=== PATIENT | female | born 1965 | race Caucasian/White ===

== ENCOUNTER 2021-03-01 09:49 | Outpatient (REF) | payer BC, SELFPAY ==
[2021-03-01 11:15] LABS: MANUAL DIFF FLAG NO
[2021-03-01 11:23] LABS: Basophils Percent Auto 0.7 % (0-2); Eosinophils Absolute Auto 0.4 X10*3/uL (0.0-0.4); Eosinophils Percent Auto 6.6 % (0-4); Hemoglobin 11.5 g/dl (12.0-16.0); Imm Gran Abs Auto 0.03 X10*3/uL (0.00-0.03); Imm Gran Pct Auto 0.5 % (0.0-0.4); Lymphocytes Absolute Auto 2.2 X10*3/uL (1.2-4.9); Lymphocytes Percent Auto 35.7 % (20-40); Mean Corpuscular HGB Conc 31.9 g/dl (31.0-35.0); Mean Corpuscular Volume 90.7 fL (80-98); Mean Platelet Volume 10.3 fL (9.4-12.3); Monocytes Absolute Auto 0.4 X10*3/uL (0.1-1.2); Monocytes Percent Auto 6.6 % (2-11); Neutrophils Percent Auto 49.9 % (45-73); Platelet Count 267 X10*3/uL (160-400); Red Blood Count 3.97 X10*6/uL (4.20-5.50); Red Cell Distribution Width 13.1 % (11.0-16.0)
[2021-03-01 11:41] LABS: Alanine Aminotransferase 22 U/L (0-31); Albumin Level 4.1 g/dL (3.5-5.0); Alkaline Phosphatase 93 U/L (39-117); Anion Gap 13 (12-20); Aspartate Amino Transferase 25 U/L (5-31); Bilirubin Total 0.4 mg/dL (0.0-1.0); Blood Urea Nitrogen 12 mg/dL (9-16); Calcium 9.1 mg/dL (8.4-10.2); Carbon Dioxide 28 mmol/L (22-29); Chloride 104 mmol/L (96-108); Estimated Glomerular Filt Rate > 60; Glucose Random 86 mg/dL (60-115); Potassium 4.8 mmol/L (3.3-5.1); Sodium 140 mmol/L (135-145); Total Protein 6.8 g/dL (6.5-8.0)
[2021-03-02 12:37] LABS: LDL Cholesterol Direct 166 mg/dL (<100)
== END 2021-03-01 09:50 | disposition home or self-care (01) ==
LOC: HO.HMGCLDS 09:49
PROVIDERS: PCP Internal Medicine; Visit Provider Internal Medicine
DX: E66.9 Obesity, unspecified (principal); F39 Unspecified mood [affective] disorder; K21.9 Gastro-esophageal reflux disease without esophagitis; G25.81 Restless legs syndrome; G47.9 Sleep disorder, unspecified; I10 Essential (primary) hypertension; Z91.09 Other allergy status, other than to drugs and biological substances
CPT/HCPCS: 36415; 80053; 83721; 85025

== ENCOUNTER 2021-05-23 02:30 | Emergency (ER) | payer BC, SELFPAY ==
[2021-05-23 02:35] VITALS: BP 110/70; BP 122/58; PULSE 70; PULSE 82; RESP 26; TEMP 36.5; O2SAT 100; O2SAT 98; BMI 51.3
--- NOTE | 2021-05-23 02:45 | ED_ITS ---
HPI - Allergic Reaction General Chief complaint: Allergic Reaction Stated complaint: Allergic reaction Time Seen by Provider: 05/23/21 02:42 History of Present Illness HPI narrative: 56-year-old female presented today with having diffuse rash that is red, extremely itchy. Sudden in onset. There is no mucosal membrane involvement. No specific cause. There is no new medication. No changes in environment. Patient is from home. No chest pain or shortness of breath. No diaphoresis. No nausea no vomiting. Related Data Home Medications Medication Instructions Recorded Confirmed albuterol sulfate 90 mcg/actuation 2 puff INHALATION Q4-6H PRN 11/29/20 03/01/21 aerosol inhaler cyclobenzaprine 5 mg tablet 5 mg PO BEDTIME 11/29/20 03/01/21 epinephrine IM PRN 11/29/20 03/01/21 fexofenadine 180 mg tablet 180 mg PO DAILY PRN 11/29/20 03/01/21 gabapentin 400 mg capsule 400 mg PO DAILY 11/29/20 03/01/21 menthol 4 % topical cream appl TOPICAL 11/29/20 03/01/21 Previous Rx's Medication Instructions Recorded fluoxetine 20 mg capsule 20 mg PO DAILY 90 Days #90 cap 12/09/20 amitriptyline 25 mg tablet 25 mg PO BEDTIME 90 Days #90 tab 02/07/21 trazodone 50 mg tablet 50 mg PO DAILY 90 Days #90 tab 02/07/21 montelukast 10 mg tablet 10 mg PO DAILY 90 Days #90 tab 02/15/21 omeprazole 20 mg capsule,delayed 20 mg PO DAILY 90 Days #90 cap 03/01/21 release amlodipine 5 mg tablet 5 mg PO DAILY 90 Days #90 tab 03/06/21 irbesartan 300 mg tablet 300 mg PO DAILY 90 Days #90 tab 04/15/21 diphenhydramine HCl [Benadryl] 25 mg PO Q8H 5 Days #15 cap 05/23/21 epinephrine [EpiPen] 0.3 mg IM ONCE PRN #1 ea 05/23/21 famotidine [Pepcid] 20 mg PO BID 5 Days #10 tab 05/23/21 prednisone 40 mg PO DAILY #10 tab 05/23/21 Allergies Allergy/AdvReac Type Severity Reaction Status Date / Time hydrochlorothiazide Allergy Severe COUGH AND Verified 03/01/21 09:19 RASH lisinopril [LISINOPRIL] Allergy Severe RASH AND Verified 03/01/21 09:19 VOMITING acetaminophen [From VICODIN] Allergy Mild RASH Unverified 03/01/21 09:19 codeine [CODEINE] Allergy Mild RASH Verified 03/01/21 09:19 oxycodone [OXYCODONE] Allergy Mild RASH Unverified 03/01/21 09:19 Penicillins [PENICILLINS] Allergy Mild RASH Verified 03/01/21 09:19 atorvastatin [Lipitor] Allergy Unknown unknown Verified 03/01/21 09:19 hydromorphone [Dilaudid] Allergy Unknown unknown Verified 03/01/21 09:19 Requip Allergy Unknown unknown Verified 03/01/21 09:19 ropinirole [From Requip] Allergy Unknown unknown Verified 03/01/21 09:19 Sulfa (Sulfonamide Allergy Unknown unknown Verified 03/01/21 09:19 Antibiotics) tetracycline Allergy Unknown unknown Verified 03/01/21 09:19 tramadol Allergy Unknown unknown Verified 03/01/21 09:19 Review of Systems Review of Systems: Positive diffuse itchy rash Yes all other systems are reviewed and are negative [facility] Past Medical History Attestation statement: The following information was validated with the patient. Surgical History History of bariatric surgery History of gastric surgery History of mammogram History of spinal fusion History of tonsillectomy Hx of cholecystectomy LAP-BAND surgery status Family History Family History Father HTN (hypertension) Mother HTN (hypertension) Brother No problems noted. Sister No problems noted. Sister No problems noted. Social History Social History Advance Directives: No Physical Exam Vital Signs: Vital Signs: Last Vital Signs Temp 97.7 F 05/23/21 02:35 Pulse 65 05/23/21 03:03 Resp 19 05/23/21 03:03 BP 140/78 H 05/23/21 03:03 Pulse Ox 100 05/23/21 03:03 Body Mass Index 51.3 Appearance: Alert. Oriented X3. No acute distress. Eyes: Pupils equal, round and reactive to light. ENT: Pharynx normal. Neck: Normal inspection. Neck supple. No lymph nodes noted. No crepitus CVS: Normal heart rate and rhythm. Pulses normal. Normal S1 and S2 Respiratory: No respiratory distress. Breath sounds normal. No Wheezing. No rales Abdomen: Soft and nontender. No rigidity. No distention. good BS x4 Skin: diffuse erythematous rash blanching. Over the arms face body legs. There is no mucosal membrane involvement. Extremities: No lower extremity edema. Neurovascular intact to all extremities. No Lacerations. No Rash Neuro: Oriented X 3. No motor deficit. No sensory deficit. Moving all extermities. No slurred speech MDM - Allergic Reaction MDM Narrative Medical decision making narrative: Fairly severe allergic reaction vital signs are good. Will give epinephrine, steroid, Pepcid. Patient already received 50 of Benadryl prior to arrival. Will monitor closely. patient monitor for 2 hours. Well-appearing no distress. Symptom mostly resolved. Will discharge patient home. In stable condition. Differential Diagnosis Differential diagnosis: Likely anaphylaxis Discharge Plan Discharge Clinical Impression: Allergic reaction, Anaphylaxis Patient Disposition: Home, Self-Care Instructions: Anaphylaxis (ED) Prescriptions: New prednisone 20 mg tablet 40 mg PO DAILY Qty: 10 RF: 0 famotidine [Pepcid] 20 mg tablet 20 mg PO BID 5 Days Qty: 10 RF: 0 diphenhydramine HCl [Benadryl] 25 mg capsule 25 mg PO Q8H 5 Days Qty: 15 RF: 0 epinephrine [EpiPen] 0.3 mg/0.3 mL auto-injector 0.3 mg IM ONCE PRN (Reason: extreme reaction) Qty: 1 RF: 0 No Action fluoxetine 20 mg capsule 20 mg PO DAILY 90 Days Qty: 90 RF: 1 amitriptyline 25 mg tablet 25 mg PO BEDTIME 90 Days Qty: 90 RF: 0 trazodone 50 mg tablet 50 mg PO DAILY 90 Days Qty: 90 RF: 0 montelukast 10 mg tablet 10 mg PO DAILY 90 Days Qty: 90 RF: 1 amlodipine 5 mg tablet 5 mg PO DAILY 90 Days Qty: 90 RF: 0 irbesartan 300 mg tablet 300 mg PO DAILY 90 Days Qty: 90 RF: 1 epinephrine IM PRNRF: 0 gabapentin 400 mg capsule 400 mg PO DAILY RF: 0 cyclobenzaprine 5 mg tablet 5 mg PO BEDTIME RF: 0 menthol 4 % cream topical RF: 0 albuterol sulfate [ProAir HFA] 90 mcg/actuation HFA aerosol inhaler 2 puff inhalation Q4-6H PRNRF: 0 fexofenadine [Lindsay Allergy] 180 mg tablet 180 mg PO DAILY PRNRF: 0 omeprazole 20 mg capsule,delayed release(DR/EC) 20 mg PO DAILY 90 Days Qty: 90 RF: 1 Referrals: Yvan Drake MD [Primary Care Provider] - 2 days
[2021-05-23 02:48] VITALS: BP 122/58; PULSE 82
[2021-05-23] MEDS: EPINEPHrine 1 MG/ML VIAL 0.3 MG SUBCUT (02:48)
[2021-05-23] MEDS: methylPREDNISolone Sod Succ 125 MG/2 ML VIAL IVPUSH (02:50)
[2021-05-23] MEDS: Famotidine/PF 20 MG/2 ML VIAL IVPUSH (02:50)
[2021-05-23] MEDS: 0.9 % Sodium Chloride 1,000 ML 999 ML IV (02:50)
[2021-05-23 03:03] VITALS: BP 140/78; PULSE 65; RESP 19; O2SAT 100
[2021-05-23 04:24] VITALS: BP 132/75; PULSE 86; RESP 15; O2SAT 98
== END 2021-05-23 04:38 | disposition home or self-care (01) ==
PROVIDERS: Emergency Provider Emergency Medicine Emergency Medical Services; PCP Internal Medicine
DX: T78.2XXA Anaphylactic shock, unspecified, initial encounter (principal)
CPT/HCPCS: 96361; 96372; 96374; 96375; 99284; J0171; J2930

== ENCOUNTER 2021-06-06 17:54 | Outpatient (REF) | payer BC, SELFPAY ==
--- NOTE | ~2021-06-06 | MR_ITS ---
MR LUMBAR SPINE WITHOUT CONTRAST CLINICAL INFORMATION: Recurrence of low back pain. Leg symptoms. COMPARISON: Lumbar spine CT 03/11/2017. TECHNIQUE: MRI of the lumbar spine was obtained using routine sequences without contrast. FINDINGS: There are postoperative changes following interbody fusion at L5-S1 with solid interbody arthrodesis at this level. There are 5 nonrib-bearing lumbar-type vertebral bodies. Lumbar alignment is normal. The vertebral body heights are maintained. The nonsurgical disc volumes are preserved. There is no bone marrow edema. There are no acute fractures. The conus terminates at the L1 level. L1-L2: There is a right paracentral/right lateral disc protrusion contacts the traversing right L2 nerve root within the right subarticular zone and that approaches without definitely contacting the extraforaminal right L1 nerve root. L2-L3: Small annular disc bulge and severe left facet arthropathy. No central canal stenosis and no foraminal stenosis. L3-L4: Small annular disc bulge and severe left facet arthropathy. No central canal stenosis and no foraminal stenosis. L4-L5: There is a diffuse annular disc bulge and there is severe bilateral facet arthropathy and ligamentum flavum thickening. Superimposed right lateral disc osteophyte results in mass effect on the right L4 nerve root of the right foraminal/extraforaminal junction. L5-S1: Postoperative changes following interbody fusion with solid interbody arthrodesis at this level. Diffuse osteophytic ridging and bilateral facet arthropathy. No central canal stenosis. No foraminal stenosis. MR/MR lumbar spine wo con IMPRESSION: - At L5-S1, there are chronic postoperative changes following interbody fusion with solid interbody arthrodesis at this level. - At L4-L5, a right lateral disc osteophyte complex results in mass effect on the right L4 nerve root of the right foraminal/extraforaminal junction. There is moderate right-sided foraminal stenosis at this level. - At L1-L2, there is a right paracentral/right lateral disc protrusion that contacts the traversing right L2 nerve root within the right subarticular zone and that approaches without definitely contacting the extraforaminal right L1 nerve root.
== END 2021-06-06 17:55 | disposition home or self-care (01) ==
LOC: HO.MRI 17:54
PROVIDERS: PCP Internal Medicine; Visit Provider Nurse Practitioner Women's Health
DX: M54.16 Radiculopathy, lumbar region (principal)
CPT/HCPCS: 72148

== ENCOUNTER 2021-08-09 17:18 | Emergency (ER) | payer BC, SELFPAY ==
--- NOTE | 2021-08-09 19:37 | PC.NURSE ---
pt not in the waiting room at this time.
--- NOTE | 2021-08-09 20:12 | PC.NURSE ---
pt not in waiting room on 3 calls lwt.
== END 2021-08-09 20:20 | disposition left against medical advice (07) ==
PROVIDERS: Emergency Provider Emergency Medicine; PCP Psychiatry & Neurology Neurology
DX: L50.0 Allergic urticaria (principal)

== ENCOUNTER 2021-08-18 07:59 | Outpatient (REF) | payer BC, SELFPAY ==
[2021-08-23 17:06] LABS: HPV mRNA E6/E7 rflx Not Detected (Not Detected)
== END 2021-08-18 08:00 | disposition home or self-care (01) ==
LOC: HO.LAB 07:59
PROVIDERS: PCP Internal Medicine; Visit Provider Advanced Practice Midwife
DX: Z01.419 Encounter for gynecological examination (general) (routine) without abnormal findings (principal); Z11.51 Encounter for screening for human papillomavirus (HPV)
CPT/HCPCS: 87624; 88142

== ENCOUNTER 2021-09-14 08:37 | Outpatient (REF) | payer BC, SELFPAY | END 2021-09-14 08:38 | disposition home or self-care (01) | LOC: HO.LAB 08:37 | PROVIDERS: Visit Provider Obstetrics & Gynecology | DX: N90.89 Other specified noninflammatory disorders of vulva and perineum (principal) | CPT/HCPCS: 56605; 88305 ==

== ENCOUNTER 2021-10-01 08:52 | Outpatient (REF) | payer BC, SELFPAY ==
--- NOTE | ~2021-10-01 | MM_ITS ---
EXAMINATION: MM SCREENING DIGITAL BREAST TOMOSYNTHESIS, BILATERAL CLINICAL INFORMATION: Screening. Asymptomatic. The lifetime risk of breast cancer based on the Tyrer-Cuzick Model is 5%. COMPARISON: Mammography: 10/13/2021, outside exam 04/09/2015 ([facility]). TECHNIQUE: Digital breast tomosynthesis is performed in both the craniocaudal and mediolateral oblique views along with computer-aided detection (CAD). Synthesized 2D images are generated from the tomosynthesis. FINDINGS: There are scattered areas of fibroglandular density (ACR BI-RADS breast composition Category b). There are no significant masses, abnormal calcifications, or other abnormalities. Parenchymal pattern is similar to prior study. No developing density. The axilla and skin contours are unremarkable. MM/MM tomosynthesis screening BI IMPRESSION: No mammographic evidence of malignancy. ASSESSMENT: BI-RADS 1: Negative RECOMMENDATION: Routine annual mammography screening. This patient's information was entered into a reminder system with a target due date for their next mammogram.
== END 2021-10-01 08:53 | disposition home or self-care (01) ==
LOC: HO.MAMMO 08:52
PROVIDERS: Visit Provider Internal Medicine
DX: Z12.31 Encounter for screening mammogram for malignant neoplasm of breast (principal)
CPT/HCPCS: 77063; 77067

== ENCOUNTER → 2021-10-07 11:24 | Outpatient (BNVA) | payer BC, SELFPAY | PROVIDERS: Visit Provider Advanced Practice Midwife ==

== ENCOUNTER 2021-11-17 15:35 | Outpatient (REF) | payer BC, SELFPAY | END 2021-11-17 15:36 | disposition home or self-care (01) | LOC: HO.LAB 15:35 | PROVIDERS: Visit Provider Obstetrics & Gynecology | DX: Z01.818 Encounter for other preprocedural examination (principal); N90.89 Other specified noninflammatory disorders of vulva and perineum | CPT/HCPCS: 56605; 88305 ==

== ENCOUNTER 2022-11-07 09:45 | Outpatient (REF) | payer BC, SELFPAY ==
[2022-11-07 10:01] LABS: MANUAL DIFF FLAG NO
[2022-11-07 10:29] LABS: Basophils Percent Auto 0.8 % (0-2); Eosinophils Absolute Auto 0.1 X10*3/uL (0.0-0.4); Eosinophils Percent Auto 2.1 % (0-4); Hematocrit 39.2 % (37.0-47.0); Hemoglobin 12.3 g/dl (12.0-16.0); Imm Gran Abs Auto 0.02 X10*3/uL (0.00-0.03); Imm Gran Pct Auto 0.4 % (0.0-0.4); Lymphocytes Absolute Auto 1.9 X10*3/uL (1.2-4.9); Lymphocytes Percent Auto 35.6 % (20-40); Mean Corpuscular HGB Conc 31.4 g/dl (31.0-35.0); Mean Corpuscular Hemoglobin 27.6 pg (27.0-33.0); Mean Corpuscular Volume 87.9 fL (80.0-98.0); Monocytes Absolute Auto 0.5 X10*3/uL (0.1-1.2); Neutrophils Absolute Auto 2.7 x10*3/uL (2.0-8.3); Neutrophils Percent Auto 52.1 % (45-73); Platelet Count 271 X10*3/uL (160-400); Red Blood Count 4.46 X10*6/uL (4.20-5.50); Red Cell Distribution Width 14.2 % (11.0-16.0); White Blood Count 5.2 X10*3/uL (4.8-10.8)
[2022-11-07 10:59] LABS: Alanine Aminotransferase 58 U/L (0-31); Alkaline Phosphatase 109 U/L (39-117); Anion Gap 14 (12-20); Aspartate Amino Transferase 67 U/L (5-31); Bilirubin Total 0.3 mg/dL (0.0-1.0); Blood Urea Nitrogen 14 mg/dL (9-16); Carbon Dioxide 23 mmol/L (22-29); Chloride 111 mmol/L (96-108); Cholesterol 237 mg/dL; Estimated Glomerular Filt Rate > 60; Glucose Fasting 94 mg/dL (60-99); HDL Cholesterol 45 mg/dL; LDL Cholesterol Calculated 161 mg/dl; Potassium 4.5 mmol/L (3.3-5.1); Sodium 143 mmol/L (135-145); Total Protein 6.7 g/dL (6.5-8.0); Triglycerides 158 mg/dL
== END 2022-11-07 09:46 | disposition home or self-care (01) ==
LOC: HO.LAB 09:45
PROVIDERS: PCP Internal Medicine; Visit Provider Internal Medicine
DX: E78.9 Disorder of lipoprotein metabolism, unspecified (principal); I10 Essential (primary) hypertension; E66.9 Obesity, unspecified; F39 Unspecified mood [affective] disorder; G25.81 Restless legs syndrome; G47.9 Sleep disorder, unspecified; K21.9 Gastro-esophageal reflux disease without esophagitis; Z91.09 Other allergy status, other than to drugs and biological substances
CPT/HCPCS: 36415; 80053; 80061; 85025

== ENCOUNTER → 2025-08-20 11:39 | Outpatient (BNVA) | payer OTHER, SELFPAY | PROVIDERS: Visit Provider Emergency Medicine | DX: S60.221A Contusion of right hand, initial encounter (principal); W23.1XXA Caught, crushed, jammed, or pinched between stationary objects, initial encounter; Z02.79 Encounter for issue of other medical certificate | CPT/HCPCS: 73130; 99203 ==